=== PATIENT | female | born 1995 | race American Indian/Alaskan Native ===

== ENCOUNTER 2017-09-10 13:39 | Emergency (ER) | payer OTHER ==
[2017-09-10 13:44] VITALS: BP 129/79
--- NOTE | 2017-09-10 14:07 | Emergency Department Report ---
Chief Complaint: Chest Pain Stated Complaint: CHEST PAIN - HPI History of Present Illness: This is a 22-year-old female nontoxic, well nourished in appearance, no acute signs of distress presents to the ED with c/o of chest pain intermittent 3 months. Patient describes chest pain as aching primarily in the left side diffuse denies any radiation. Denies any shortness of breath, fever, chills, nausea, vomiting, headache, stiff neck, numbness, tingling or abdominal pain or back pain. She did follow up with a primary care doctor with 2 different doctors and was diagnosed with tachycardia with normal evaluation of the heart. Patient denies follow up with a spinning supervisor. - Exam Vital Signs: Vital Signs 09/10/17 13:41 Temperature 98 F Pulse Rate 103 H Respiratory 24 Rate Blood Pressure 129/79 O2 Sat by Pulse 97 Oximetry Physical Exam: GENERAL: The patient is a well-developed, well-nourished female in no apparent distress. Patient is alert and acting appropriately for age. Alert and oriented 3, no apparent distress, normal gait, atraumatic. LUNGS: Clear to auscultation. Non labor breathing. No intercostal retractions. Symmetrical with respiration, no wheezing, no rales, or crackles. HEART: sinus tachycardia and normal rhythm without murmur, rubs or gallops. No reproducible. S1, S2 present, regular rate and rhythm without murmur, no rubs, no gallops. MSE screening note: Focused history and physical exam performed. Due to findings the following was ordered: 1- This initial assessment/diagnostic orders/clinical plan/ treatment(s) is/are subject to change based on pt's health status, clinical progression and re- assessment by fellow clinical providers in the ED. Further treatment and workup at subsequent clinical provers discretion. Patient/guardians urged not to elope from ED as their condition may be serious if not clinically assessed and managed. 2-EKG/chest x-ray 3-CBC, BMP, troponin, cardiac CK ED Disposition for MSE Condition: Stable
[2017-09-10 14:41] LABS: Basophils % (Auto) 0.2 % (0.0-1.8); Eosinophils % (Auto) 1.5 % (0.0-4.3); Hematocrit 37.5 % (30.3-42.9); Hemoglobin 12.4 gm/dl (10.1-14.3); Mean Corpuscular HGB Conc 33 % (30-34); Mean Corpuscular Hemoglobin 27 pg (28-32); Mean Corpuscular Volume 82 fl (79-97); Platelet Count 312 K/mm3 (140-440); Red Cell Distribution Width 13.6 % (13.2-15.2); White Blood Count 8.9 K/mm3 (4.5-11.0)
[2017-09-10 15:01] LABS: Anion Gap 16 mmol/L; BUN/Creatinine Ratio 24; Blood Urea Nitrogen 12 mg/dL (7-17); Calcium 9.4 mg/dL (8.4-10.2); Carbon Dioxide 25 mmol/L (22-30); Chloride 100.7 mmol/L (98-107); Creatine Kinase 81 units/L (30-135); Glucose 109 mg/dL (65-100); Sodium 138 mmol/L (137-145)
[2017-09-10 15:04] LABS: Creatine Kinase MB < 1.0 ng/mL (0.0-4.0)
== END 2017-09-10 23:30 | disposition left against medical advice (07) ==
LOC: ED 13:39
DX: R07.9 Chest pain, unspecified (principal); Z53.21 Procedure and treatment not carried out due to patient leaving prior to being seen by health care provider
CPT/HCPCS: 36415; 80048; 82550; 82553; 84484; 84703; 85025; 93005; 93010